=== PATIENT | male | born 1990 | race Hispanic/Latino ===

== ENCOUNTER → 2020-10-23 | Outpatient (CLI) | payer OTHER ==
[~2020-10-23] MED LIST: GADOBENATE DIMEGLUMINE 1 ML IV ONE; SODIUM CHLORIDE 0.9% 50ML 50 ML ONE
== END ==
LOC: MRI 07:49
PROVIDERS: ATTEND Surgery
DX: R19.09 Other intra-abdominal and pelvic swelling, mass and lump (principal)
CPT/HCPCS: 74183